=== PATIENT | male | born 2000 | race Caucasian/White ===

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

== ENCOUNTER → 2019-03-22 11:59 | Outpatient (CLI) | payer BC, SELFPAY ==
[2019-03-22 12:02] LABS: Adenovirus F 40/41, stool Not Detected (NotDetected); Astrovirus Not Detected (NotDetected); Campylobacter Not Detected (NotDetected); Clostridium Difficile A/B, PCR Not Detected (NotDetected); Cryptosporidium Not Detected (NotDetected); Cyclospora Cayetanesis Not Detected (NotDetected); Entamoeba histolytica Not Detected (NotDetected); Enteropathogenic E coli Not Detected (NotDetected); Enterotoxigenic E coli Not Detected (NotDetected); Giardia lamblia Not Detected (NotDetected); Norovirus Not Detected (NotDetected); Plesimonas Shigalloides, PCR Not Detected (NotDetected); Rotavirus A Not Detected (NotDetected); Salmonella, PCR Not Detected (NotDetected); Sapovirus Not Detected (NotDetected); Shiga-like toxin E coli Not Detected (NotDetected); Shigella Enterovasive E coli Not Detected (NotDetected); Vibrio Cholerae Not Detected (NotDetected); Vibrio, PCR Not Detected (NotDetected); Yersinia Entercolitica, PCR Not Detected (NotDetected)
[2019-03-22 19:08] LABS: Enteroaggregative E coli Detected (NotDetected)
== END ==
PROVIDERS: Visit Provider Nurse Practitioner Family
DX: R19.7 Diarrhea, unspecified (principal); A04.1 Enterotoxigenic Escherichia coli infection; Z86.19 Personal history of other infectious and parasitic diseases
CPT/HCPCS: 87507

== ENCOUNTER → 2019-07-18 16:53 | Outpatient (CLI) | payer BC, SELFPAY ==
--- NOTE | 2019-07-18 | XR_ITS ---
PROCEDURE: XR CHEST 2V CLINICAL HISTORY: , left-sided chest pain, nonsmoker COMPARISON: No exams were available for comparison FINDINGS: The cardiomediastinal silhouette and pulmonary vascularity are within normal limits. The lungs are clear without infiltrates, suspicious nodules, or pleural effusions. There are small calcified hilar nodes bilaterally. No acute bony abnormalities. IMPRESSION: No acute findings. Dictated by: Dr. Beni Lomas MD 07/18/2019 17:[address] Beni Lomas MD in [place] 07/18/2019 17:16
== END ==
PROVIDERS: PCP Family Medicine; Visit Provider Family Medicine
DX: R07.9 Chest pain, unspecified (principal)
CPT/HCPCS: 71046

== ENCOUNTER → 2019-09-24 08:09 | Outpatient (CLI) | payer BC, SELFPAY ==
--- NOTE | 2019-09-24 08:14 | US_ITS ---
PROCEDURE: US ABDOMEN COMPLETE CLINICAL INDICATION: LUQ PAIN COMPARISON: No exams were available for comparison FINDINGS: PANCREAS: Unremarkable. No obvious mass or abnormal fluid collection. No ductal dilatation LIVER: No focal liver lesions demonstrated. Homogeneous echogenicity. No intrahepatic biliary ductal dilatation evident. There is appropriate direction of blood flow within a non dilated portal vein RIGHT KIDNEY: Unremarkable. Normal size and echogenicity. No hydronephrosis LEFT KIDNEY: Unremarkable. Normal size and echogenicity. No hydronephrosis GALLBLADDER: No gallstones, gallbladder wall thickening, pericholecystic fluid, or biliary dilatation.. There is a small amount of sludge within the gallbladder. AORTA: No evidence of aneurysmal dilatation. SPLEEN: Unremarkable. Normal size and echogenicity ASCITES: None demonstrated. IMPRESSION: Minimal amount of gallbladder sludge otherwise negative abdominal ultrasound Dictated by: Ulises Smith MD 09/25/2019 10:19 Electronically signed by Ulises Smith MD in [place] 09/25/2019 10:19
== END ==
PROVIDERS: PCP Family Medicine; Visit Provider Family Medicine
DX: R10.12 Left upper quadrant pain (principal)
CPT/HCPCS: 76700

== ENCOUNTER → 2019-10-23 08:47 | Outpatient (CLI) | payer BC, SELFPAY ==
--- NOTE | 2019-10-23 08:52 | CT_ITS ---
PROCEDURE: CT ABDOMEN PELVIS W CON CLINICAL INDICATION: ABD PAIN,LT UPPER QUAD PAIN Left upper quadrant pain COMPARISON: ABDPELW CT abdomen pelvis w con from 03/20/2019 TECHNIQUE: IV Contrast: 75ML OPTIRAY 350 Oral Contrast 450ml Redicat Axial images obtained with sagittal and coronal reformats. All CT scans at the facility use one or more dose reduction, viz: automated exposure control, ma/kV adjustment per patient size (including targeted exams where dose is matched to indication, i.e. head), or iterative reconstruction technique. FINDINGS: LOWER THORAX: No acute finding ABDOMEN & PELVIS: The liver, spleen adrenal glands, pancreas, and kidneys have an unremarkable appearance. Low-density changes present in the liver along the falciform ligament consistent with focal fatty infiltration. No intestinal obstruction or free air is evident. No acute bony findings. There is slight reversal of the thoracolumbar lordosis. Pelvis is not included in the exam. IMPRESSION: Negative CT scan of the abdomen, no acute finding. Dictated by: Ulises Smith MD 10/24/2019 11:09 Electronically signed by Ulises Smith MD in [place] 10/24/2019 11:09
== END ==
PROVIDERS: PCP Family Medicine; Visit Provider Internal Medicine Gastroenterology
DX: R10.12 Left upper quadrant pain (principal)
CPT/HCPCS: 74160; 74177; Q9967

== ENCOUNTER → 2020-02-05 10:14 | Outpatient (CLI) | payer BC, SELFPAY ==
--- NOTE | 2020-02-05 10:17 | NM_ITS ---
PROCEDURE: NM HEPATOBILIARY W PHARM CLINICAL INDICATION: ABD PAIN COMPARISON: No exams were available for comparison TECHNIQUE: 8.07 mCi technetium Choletec. 1.3 mcg of CCK No pain reported with CCK infusion DOSE: FINDINGS: Homogeneous activity is present within the hepatic parenchyma. Activity is present in the gallbladder by 10 minutes. Activity is present in the small bowel by 25 minutes. The gallbladder ejection fraction is calculated to be 94 percent. CCK-The patient did not report pain or other symptoms during CCK infusion. IMPRESSION: Unremarkable hepatobiliary scan with normal gallbladder ejection fraction Dictated by: Ulises Smith MD 02/06/2020 06:51 Electronically signed by Ulises Smith MD in [place] 02/06/2020 06:51
== END ==
PROVIDERS: PCP Family Medicine; Visit Provider Family Medicine
DX: R10.9 Unspecified abdominal pain (principal)
CPT/HCPCS: 78227; A9537; J2805

== ENCOUNTER → 2020-07-29 19:42 | Outpatient (CLI) | payer BC, SELFPAY | PROVIDERS: PCP Family Medicine; Visit Provider Family Medicine | DX: Z03.818 Encounter for observation for suspected exposure to other biological agents ruled out (principal) | CPT/HCPCS: U0003 ==

== ENCOUNTER → 2020-08-01 15:25 | Outpatient (CLI) | payer BC, SELFPAY | PROVIDERS: PCP Family Medicine; Visit Provider Family Medicine | DX: Z20.828 Contact with and (suspected) exposure to other viral communicable diseases (principal); U07.1 COVID-19 | CPT/HCPCS: U0003 ==

== ENCOUNTER → 2020-08-12 13:46 | Outpatient (CLI) | payer BC, SELFPAY ==
[2020-08-13 09:48] LABS: Covid-19 Nasal PCR Sendout P&C POSITIVE
== END ==
PROVIDERS: PCP Family Medicine; Visit Provider Family Medicine
DX: Z20.828 Contact with and (suspected) exposure to other viral communicable diseases (principal); U07.1 COVID-19
CPT/HCPCS: U0004

== ENCOUNTER 2023-05-16 17:35 | Emergency (ER) | payer OTHER, BC, SELFPAY ==
[2023-05-16 17:36] VITALS: BP 129/86; PULSE 62; RESP 18; TEMP 36.6; O2SAT 99; BMI 23.3
--- NOTE | 2023-05-16 17:49 | EXP.UTC ---
Discharge Plan Disposition Patient Disposition: Home, Self-Care Condition: Good Prescriptions Prescriptions: New methylprednisolone 4 mg Tablets,Dose Pack 4 mg PO DIRECTED Qty: 21 0RF azalujjbhupvkda-astcolkac-HU [Bromfed DM] 2-30-10 mg/5 mL Syrup 5 ml PO Q6H PRN (Reason: Cough) Qty: 240 0RF azithromycin [Zithromax] 250 mg tablet 250 mg PO UD DOSE PK Qty: 6 0RF Rx Instructions: Take two (2) tablets today, then one (1) tablet days #2 thru #5 Referrals Follow up/Referrals: Bettina Enciso [Primary Care Provider] - See instructions Activity Restrictions/Add. Instructions Additional Instructions/Restrictions: Drink plenty of fluids. Take tylenol or ibuprofen for pain or fever. Take the medications as directed. Follow up with your regular doctor. GO TO THE ER FOR ANY WORSENING SYMPTOMS Clinical Impressions Clinical Impression: Bronchitis Instructions Patient Instructions: Acute Bronchitis, DI for Acute Bronchitis, Methylprednisolone, Azithromycin Discharge ED Provider: Angel Parker [facility] General Stated complaint: cough, congestion Time Seen by Provider: 05/16/23 17:49 History of Present Illness Provider Complaint: He states that for the past 2 weeks he has had chest congestion and a productive cough. He denies fever/chills/body aches. Related Data Previous Rx's Medication Instructions Recorded azithromycin 250 mg tablet 250 mg PO UD DOSE PK #6 tabs 05/16/23 (Zithromax) mhbdpgqekrtqrba-apkroovvmxziokz-CO 5 ml PO Q6H PRN Cough #240 mL 05/16/23 2 mg-30 mg-10 mg/5 mL oral syrup (Bromfed DM) methylprednisolone 4 mg tablets in 4 mg PO DIRECTED #21 tabs 05/16/23 a dose pack Allergies Allergy/AdvReac Type Severity Reaction Status Date / Time No Known Allergies Allergy Verified 05/16/23 17:[address] [facility] Disclaimer: The information contained in this section may have been updated after the patient was seen, as this information can be updated by other users. Social History Smoking Status: Never smoker alcohol intake: never substance use type: denies use current occupational status: employed and student Travel in the last 8 weeks: None household members: family housing: house ROS Obtained: Yes All systems reviewed & no additional complaints except as documented Constitutional Constitutional: Reports poor appetite Eyes Eyes: Reports system reviewed and no additional complaints, except as documented ENT Ears, Nose, Mouth, and Throat: Reports as per HPI Cardiovascular Cardiovascular: Reports system reviewed and no additional complaints, except as documented and Denies chest pain Respiratory Respiratory: Denies shortness of breath, Reports chest congestion, Reports cough, Denies stridor and Denies wheezing Gastrointestinal Gastrointestingal: Reports system reviewed and no additional complaints, except as documented; Denies abdominal pain, diarrhea or vomiting Musculoskeletal Musculoskeletal: Reports system reviewed and no additional complaints, except as documented and Denies arthralgias Integumentary/Breasts Skin/Breast: Reports system reviewed and no additional complaints, except as documented and Denies rash Neurologic Neurologic: Denies paresthesias Allergic/Immunologic Allergic/Immunologic: Denies wheezing Physical Exam General General appearance: alert and in no apparent distress Head Head exam: atraumatic, normocephalic and normal inspection Eye Eye exam: Present normal appearance, PERRL and EOMI ENT ENT exam: Present normal exam, normal oropharynx, mucous membranes moist, TM's normal bilaterally and normal external ear exam Neck Neck exam: Present normal inspection, full ROM and trachea midline; Absent meningismus or lymphadenopathy Chest Chest inspection: Present normal inspection and symmetric chest wall rise; Absent tenderness Respiratory Respiratory exam: Present normal lung
[2023-05-16 18:14] VITALS: BP 129/86; PULSE 67; RESP 18; TEMP 36.6; O2SAT 99
== END 2023-05-16 18:14 | disposition home or self-care (01) ==
PROVIDERS: Emergency Provider Nurse Practitioner Family; PCP Family Medicine
DX: J20.9 Acute bronchitis, unspecified (principal)
CPT/HCPCS: 99204; 99212; G0463

== ENCOUNTER 2024-03-19 17:19 | Emergency (ER) | payer OTHER, BC, SELFPAY ==
[2024-03-19 17:30] VITALS: BP 141/87; PULSE 70; RESP 20; TEMP 36.8; O2SAT 100; BMI 23.1
[2024-03-19 17:47] LABS: UTC Strep Screen (Rapid) Positive (Negative)
--- NOTE | 2024-03-19 17:52 | EXP.UTC ---
Discharge Plan Disposition Patient Disposition: Home, Self-Care Condition: Good Prescriptions Prescriptions: New amoxicillin 875 mg tablet 875 mg PO Q12H Qty: 20 0RF methylprednisolone 4 mg Tablets,Dose Pack 4 mg PO DIRECTED 6 Days Qty: 21 0RF Rx Instructions: Take 1 pack as directed for 6 days irmeztafyrknsks-pclwkemov-RG [Bromfed DM] 2-30-10 mg/5 mL Syrup 5 ml PO Q6H PRN (Reason: Cough) Qty: 240 0RF Referrals Follow up/Referrals: Bettina Enciso [Primary Care Provider] - See instructions Activity Restrictions/Add. Instructions Additional Instructions/Restrictions: Drink plenty of fluids. Take tylenol or ibuprofen for pain or fever. Take the medications as directed. Follow up with your regular doctor. GO TO THE ER FOR ANY WORSENING SYMPTOMS Throw your tooth brush away and get a new one. Clinical Impressions Clinical Impression: Strep throat, Asthma exacerbation Instructions Patient Instructions: Strep Throat, DI for Strep Throat Print Language Print Language: Armenian Discharge ED Provider: Angel Parker [facility] [place], [place] General Stated complaint: cough Mode of Arrival: Ambulatory Source of Information: Patient Limitations: No Limitations Time Seen by Provider: 03/19/24 17:52 Description of Symptoms (Recalled from Triage Doc. by RN): PATIENT C/O CHEST CONGESTION, COUGH, AND SORE THROAT X 2 WEEKS HEENT Symptoms (Recalled from RN notes): Yes Resp Symptoms (Recalled from RN notes): Yes Skin Symptoms (Recalled from RN notes): No MS Symptoms (Recalled from RN notes): No Functional Status (Recalled from RN notes): WNL History of Present Illness Provider Complaint: He states that for the past 4 days he has had worsening sore throat, chest congestion, and malaise. Related Data Previous Rx's ?Medication ?Instructions ?Recorded amoxicillin 875 mg tablet 875 mg PO Q12H #20 tabs 03/19/24 hjpjwdoeatipmsz-nptbbfwmhirngha-BF 5 ml PO Q6H PRN Cough #240 mL 03/19/24 2 mg-30 mg-10 mg/5 mL oral syrup (Bromfed DM) methylprednisolone 4 mg tablets in 4 mg PO DIRECTED 6 days #21 tabs 03/19/24 a dose pack Allergies Allergy/AdvReac Type Severity Reaction Status Date / Time No Known Allergies Allergy Verified 05/16/23 17:51 Worker's Comp Is this a Worker's Comp case?: No [facility] Disclaimer: The information contained in this section may have been updated after the patient was seen, as this information can be updated by other users. Medical History (Updated 03/19/24 @ 18:02 by Angel aPrker APRN) Migraine Asthma Surgical History (Updated 03/19/24 @ 17:49 by Ariela Del Castillo RN) History of cholecystectomy Social History Smoking Status: Never smoker alcohol intake: never substance use type: denies use current occupational status: employed and student Travel in the last 8 weeks: None household members: family housing: house ROS Obtained: Yes All systems reviewed & no additional complaints except as documented Constitutional Constitutional: Reports chills and Reports fever(s) Eyes Eyes: Denies eye discharge ENT Ears, Nose, Mouth, and Throat: Reports as per HPI Cardiovascular Cardiovascular: Denies chest pain Respiratory Respiratory: Denies chest congestion and Reports cough Gastrointestinal Gastrointestingal: Reports nausea; Denies abdominal pain, constipation, cramping, diarrhea or vomiting Musculoskeletal Musculoskeletal: Denies arthralgias Integumentary/Breasts Skin/Breast: Denies rash Neurologic Neurologic: Denies paresthesias Physical Exam General General appearance: alert and in no apparent distress Head Head exam: atraumatic, normocephalic and normal inspection Eye Eye exam: Present normal appearance, PERRL and EOMI ENT ENT exam: Present mucous membranes moist and normal external ear exam Expanded ENT Exam TM/Canal exam: Bilateral TM: erythema and bulging Nose exam: Absent sinus tenderness Mouth exam: Present normal external inspection; Absent drooling Teeth exam: Present normal inspection Throat exam: Present tonsillar erythema, tonsillomegaly and tonsillar exudate Neck Neck exam: Present normal inspection, full ROM and trachea midline; Absent tenderness, meningismus or lymphadenopathy Chest Chest inspection: Present normal inspection and symmetric chest wall rise; Absent tenderness Respiratory Respiratory exam: Present normal lung sounds bilaterally; Absent respiratory distress, wheezes, stridor or accessory muscle use Cardiovascular Cardiovascular exam: Present regular rate and normal rhythm; Absent systolic murmur or diastolic murmur Abdominal Exam Abdominal exam: Present soft and normal bowel sounds; Absent distention, tenderness, guarding, rebound or rigidity Extremities Exam Extremities exam: Present normal inspection and normal capillary refill; Absent calf tenderness Back Exam Back exam: Present normal inspection and full ROM; Absent tenderness, CVA tenderness (R) or CVA tenderness (L) Neurological Exam Neurological exam: Present alert, oriented X3 and CN II-XII intact Psychiatric Psychiatric exam: Present normal affect and normal mood Skin Skin exam: Present warm, dry, intact and normal color Medical Decision Making Medical Records Medical records reviewed: No I reviewed the patient's medical records. Anthony Inquiry Pt receiving controlled substance: No Vital Signs: 03/19/24 17:30 Temperature 98.3 F Temperature Source Oral Pulse Rate [Left Brachial] 70 Respiratory Rate 20 Blood Pressure [Left Arm] 141/87 H Blood Pressure Mean [Left Arm] 105 Blood Pressure Source [Left Arm] Automatic Cuff Blood Pressure Position [Left Arm] Sitting 02 Sat by Pulse Oximetry 100 Oxygen Delivery Method Room Air Lab Data Lab results reviewed: Yes I reviewed the patient's lab results. Lab Results 03/19/24 17:33: Strep Scn Rapid [facility] Positive A
[2024-03-19 18:02] VITALS: BP 141/87; PULSE 70; RESP 20; TEMP 36.8; O2SAT 100
== END 2024-03-19 18:05 | disposition home or self-care (01) ==
PROVIDERS: Emergency Provider Nurse Practitioner Family; PCP Family Medicine
DX: J02.0 Streptococcal pharyngitis (principal); J45.901 Unspecified asthma with (acute) exacerbation; R05.9 Cough, unspecified
CPT/HCPCS: 87880; 99212; 99214; G0463

== ENCOUNTER 2024-06-16 09:28 | Emergency (ER) | payer OTHER, BC, SELFPAY ==
[2024-06-16 09:38] VITALS: BP 150/91; PULSE 112; RESP 20; TEMP 36.8; O2SAT 100; BMI 23.5
--- NOTE | 2024-06-16 10:20 | EXP.UTC ---
Discharge Plan Disposition Patient Disposition: Home, Self-Care Condition: Good Prescriptions Prescriptions: New azithromycin 250 mg tablet See Rx Instructions .ROUTE .COMPLEX Qty: 6 0RF Rx Instructions: For 250 mg dose pack: take 500 mg today (day 1), then 250 mg for 4 days (days 2-5) methylprednisolone [Medrol (Praveen)] 4 mg tablets,dose pack See Rx Instructions .ROUTE .COMPLEX 6 Days Qty: 21 0RF Rx Instructions: 4 mg orally ;Medrol dose taper praveen benzonatate 100 mg capsule 100 mg PO TID PRN (Reason: cough) Qty: 30 0RF albuterol sulfate [Ventolin HFA] 90 mcg/actuation HFA aerosol inhaler 2 puff inhalation QID PRN (Reason: shortness of breath or wheezing) Qty: 8.5 1RF Referrals Follow up/Referrals: Bettina Enciso [Primary Care Provider] - See instructions Activity Restrictions/Add. Instructions Additional Instructions/Restrictions: Take medication as prescribed. Increase fluids and rest. Follow up with Primary care provider next week. Clinical Impressions Clinical Impression: Bronchitis Instructions Patient Instructions: DI for Acute Bronchitis Print Language Print Language: Syriac Discharge ED Provider: Marlee Mclain [facility] [place] HPI General Stated complaint: congestion, runny nose, drainage, headache Mode of Arrival: Ambulatory Source of Information: Patient Time Seen by Provider: 06/16/24 10:20 Description of Symptoms (Recalled from Triage Doc. by RN): SINUS CONGESTION AND COUGH AND WHEEZY IN CHEST HEENT Symptoms (Recalled from RN notes): No Resp Symptoms (Recalled from RN notes): Yes Skin Symptoms (Recalled from RN notes): No MS Symptoms (Recalled from RN notes): No Functional Status (Recalled from RN notes): WNL History of Present Illness Provider Complaint: Pt reports that last weekend he went hunting and ended up with what he felt were allergies. He states that he is now wheezing a lot, strong cough, yellow nasal drainage and shortness of air. He reports a history of asthma, but is out of his inhaler. Related Data Previous Rx's ?Medication ?Instructions ?Recorded albuterol sulfate 90 mcg/actuation 2 puff inhalation QID PRN 06/16/24 aerosol inhaler (Ventolin HFA) shortness of breath or wheezing #8.5 grams azithromycin 250 mg tablet See Rx Instructions PO .COMPLEX #6 06/16/24 tabs benzonatate 100 mg capsule 100 mg PO TID PRN cough #30 caps 06/16/24 methylprednisolone 4 mg tablets in See Rx Instructions .Route 06/16/24 a dose pack (Medrol (Praveen)) .COMPLEX 6 days #21 tabs Allergies Allergy/AdvReac Type Severity Reaction Status Date / Time No Known Allergies Allergy Verified 05/16/23 17:51 Worker's Comp Is this a Worker's Comp case?: No [facility] Disclaimer: The information contained in this section may have been updated after the patient was seen, as this information can be updated by other users. Medical History (Updated 06/16/24 @ 10:34 by Marlee Mclain APRN) Migraine Asthma Surgical History (Updated 03/19/24 @ 17:49 by Ariela Del Castillo RN) History of cholecystectomy Social History Smoking Status: Never smoker alcohol intake: never substance use type: denies use current occupational status: employed and student Travel in the last 8 weeks: None household members: family housing: house ROS Obtained: Yes All systems reviewed & no additional complaints except as documented Constitutional Constitutional: Reports system reviewed and no additional complaints, except as documented Eyes Eyes: Reports system reviewed and no additional complaints, except as documented ENT Ears, Nose, Mouth, and Throat: Reports system reviewed and no additional complaints, except as documented, Reports nasal congestion and Reports nasal discharge Cardiovascular Cardiovascular: Reports system reviewed and no additional complaints, except as documented Respiratory Respiratory: Reports system reviewed and no additional complaints, except as documented, Reports shortness of breath, Reports chest congestion, Reports cough and Reports wheezing Gastrointestinal Gastrointestingal: Reports system reviewed and no additional complaints, except as documented Genitourinary Male Genitourinary: Reports system reviewed and no additional complaints, except as documented Musculoskeletal Musculoskeletal: Reports system reviewed and no additional complaints, except as documented Integumentary/Breasts Skin/Breast: Reports system reviewed and no additional complaints, except as documented Neurologic Neurologic: Reports system reviewed and no additional complaints, except as documented Endocrine Endocrine: Reports system reviewed and no additional complaints, except as documented Hematologic/Lymphatic Henatologic/Lymphatic: Reports system reviewed and no additional complaints, except as documented Allergic/Immunologic Allergic/Immunologic: Reports system reviewed and no additional complaints, except as documented and Reports wheezing Physical Exam General General appearance: alert and in no apparent distress Head Head exam: atraumatic and normocephalic Eye Eye exam: Present normal appearance ENT ENT exam: Present mucous membranes moist Expanded ENT Exam External ear exam: Present normal external inspection Nasal speculum exam: Bilateral: normal Mouth exam: Present normal external inspection Teeth exam: Present normal inspection Throat exam: Present normal inspection Neck Neck exam: Present normal inspection Chest Chest inspection: Present normal inspection and symmetric chest wall rise Respiratory Respiratory exam: Present wheezes Expanded Respiratory Exam Location: Left: wheezes and rhonchi, Right: wheezes and rhonchi, Upper: wheezes and rhonchi and Lower: wheezes and rhonchi Cardiovascular Cardiovascular exam: Present tachycardia and normal heart sounds Abdominal Exam Abdominal exam: Present soft and normal bowel sounds Extremities Exam Extremities exam: Present normal inspection Back Exam Back exam: Present normal inspection Neurological Exam Neurological exam: Present alert and oriented X3 Psychiatric Psychiatric exam: Present normal affect and normal mood Skin Skin exam: Present warm, dry and intact Lymphatic Lymphatic Findings: no adenopathy Medical Decision Making Medical Records Screening: Per USPSTF and CDC recommendations, given the prevalence of disease in our region, it is our hospital?s policy to screen for HIV and viral Hepatitis for all patients aged 18 and over and those with ongoing risk factors. Anthony Inquiry Pt receiving controlled substance: No Anthony was queried for this patient: No Vital Signs: 06/16/24 09:38 Temperature 98.3 F Temperature Source Oral Pulse Rate [Left Radial] 112 H Respiratory Rate 20 Blood Pressure [Left Arm] 150/91 H Blood Pressure Mean [Left Arm] 110 02 Sat by Pulse Oximetry 100 Reports BP is fine at home. Has white coat syndrome.
[2024-06-16 10:41] VITALS: BP 150/91; PULSE 112; RESP 20; TEMP 36.8
== END 2024-06-16 10:44 | disposition home or self-care (01) ==
PROVIDERS: Emergency Provider Nurse Practitioner Family; PCP Family Medicine
DX: J40 Bronchitis, not specified as acute or chronic (principal)
CPT/HCPCS: 99213; G0381

== ENCOUNTER 2024-09-20 15:54 | Outpatient (CLI) | payer OTHER, BC, SELFPAY ==
--- NOTE | 2024-09-20 15:57 | XR_ITS ---
FINAL REPORT CLINICAL HISTORY: Neurogenic pain COMPARISON: None FINDINGS: THORACIC SPINE 3 views of the thoracic spine were obtained. No fracture is seen. Alignment is normal. No significant degenerative changes are seen. IMPRESSION: Unremarkable thoracic spine series. Reviewed, Interpreted and Dictated by David Alaniz MD Transcribed by Shanique Bruner Authenticated and [facility]
--- NOTE | 2024-09-20 16:10 | MR_ITS ---
PROCEDURE INFORMATION: Exam: MR Thoracic Spine Without and With Contrast Exam date and time: 09/20/2024 4:22 PM Age: 24 years old Clinical indication: Pain in thoracic spine; Pain in distal part of upper back with left sided pain; Additional info: Neurogenic pain TECHNIQUE: Imaging protocol: Magnetic resonance imaging of the thoracic spine without and with contrast. Contrast material: PROHANCE; Contrast volume: 14 ml; Contrast route: IV; COMPARISON: 1. CR XR THORACIC SPINE 2V 09/20/2024 3:[address] ABDOMEN PELVIS W CON 10/23/2019 9:[address] ABDOMEN PELVIS W CON 03/20/2019 6:15 AM FINDINGS: Bones/joints: Unremarkable. No fracture. Normal alignment. Spinal cord: Normal signal. No cord compression. T1-T2: No significant disc bulge or herniation. No severe spinal canal stenosis. No significant neural foraminal narrowing. T2-T3: No significant disc bulge or herniation. No severe spinal canal stenosis. No significant neural foraminal narrowing. T3-T4: No significant disc bulge or herniation. No severe spinal canal stenosis. No significant neural foraminal narrowing. T4-T5: No significant disc bulge or herniation. No severe spinal canal stenosis. No significant neural foraminal narrowing. T5-T6: No significant disc bulge or herniation. No severe spinal canal stenosis. No significant neural foraminal narrowing. T6-T7: No significant disc bulge or herniation. No severe spinal canal stenosis. No significant neural foraminal narrowing. T7-T8: No significant disc bulge or herniation. No severe spinal canal stenosis. No significant neural foraminal narrowing. T8-T9: No significant disc bulge or herniation. No severe spinal canal stenosis. No significant neural foraminal narrowing. T9-T10: No significant disc bulge or herniation. No severe spinal canal stenosis. No significant neural foraminal narrowing. T10-T11: No significant disc bulge or herniation. No severe spinal canal stenosis. No significant neural foraminal narrowing. T11-T12: No significant disc bulge or herniation. No severe spinal canal stenosis. No significant neural foraminal narrowing. T12-L1: No significant disc bulge or herniation. No severe spinal canal stenosis. No significant neural foraminal narrowing. Soft tissues: Unremarkable. IMPRESSION: Unremarkable spine.
[2024-09-20] MEDS: GADOTERIDOL INJ 20ML SYRINGE 14 ML IV (17:05)
[2024-09-20] MEDS: SODIUM CHLORIDE 0.9% 10ML SYR (RAD ONLY) 10 ML IV (17:05)
== END 2024-09-20 23:59 | disposition home or self-care (01) ==
LOC: RAD 15:55
PROVIDERS: PCP Family Medicine; Visit Provider Specialist
DX: M54.6 Pain in thoracic spine (principal); M79.2 Neuralgia and neuritis, unspecified
CPT/HCPCS: 72070; 72157; A9576